=== PATIENT | male | born 1960 | race Caucasian/White ===

== ENCOUNTER → 2023-07-10 09:44 | Outpatient (REF) | payer BC, SELFPAY | LOC: RCS 09:44 | PROVIDERS: ATTENDING PHYSICIAN Orthopaedic Surgery | DX: Z01.818 Encounter for other preprocedural examination (principal) | CPT/HCPCS: 93005 ==

== ENCOUNTER 2023-08-16 06:11 | Inpatient (IN) | payer BC, SELFPAY ==
[2023-08-14 09:36] VITALS: BMI 22.8
[2023-08-14 10:08] LABS: % Basophils 0.9 % (0-2); % Eosinophils 1.8 % (0-6); % Immature Granulocytes 0.1 % (0-0.5); % Lymphocytes 27.9 % (20.5-51.1); % Monocytes 6.1 % (1.7-9.3); % Neutrophils 63.2 % (42.2-75.2); Absolute Basophils 0.1 10^3/uL (0-0.2); Absolute Eosinophils 0.1 10^3/uL (0-0.7); Absolute Lymphocytes 1.9 10^3/uL (1.2-3.4); Absolute Monocytes 0.4 10^3/uL (0.1-0.6); Absolute Neutrophils 4.2 10^3/uL (1.4-6.5); Hematocrit 40.9 % (39.0-52.0); Hemoglobin 14.2 g/dL (13.0-18.0); Mean Corp Hgb Conc. 34.7 g/dL (33.0-37.0); Mean Corpuscular Hgb 29.6 pg (27.0-31.0); Mean Corpuscular Volume 85.4 fL (80.0-94.0); Mean Platelet Volume 10.5 fL (7.4-10.4); Nucleated Red Blood Cells % 0 % (-); Platelet Count 226 10^3/uL (130-400); Red Blood Cell Count 4.79 10^6/uL (4.70-6.10); Red Cell Dist. Width 12.7 % (11.5-14.5); White Blood Cell Count 6.7 10^3/uL (4.8-10.8)
[2023-08-14 10:21] LABS: INR 1.03; PT 13.6 Sec (11.4-14.6)
[2023-08-14 10:29] LABS: Blood Urea Nitrogen 33 mg/dl (9-20); Calcium 10.1 mg/dl (8.4-10.2); Carbon Dioxide 28 mmol/L (22-30); Chloride 101 mmol/L (98-107); Estimated Creatinine Clearance 77 ml/min; Glucose 128 mg/dl (70-99); Potassium 4.2 mmol/L (3.5-5.1); Sodium 139 mmol/L (135-145); eGFR > 60.00
[2023-08-16] VITALS (17 sets, daily range): BP systolic 84–141; BP diastolic 50–81; BMI 22.3; BMI 22.9
[2023-08-16] MEDS: BACTROBAN NASAL 1 GRAM NASAL (06:44)
[2023-08-16] MEDS: PERIDEX 0.12% ORAL RINSE 15 ML PO (06:44)
[2023-08-16 06:52] LABS: Glucose - Point of Care 161 mg/dl (70-99)
--- NOTE | 2023-08-16 06:54 | PTCARENOTE ---
Dr Hancock at pt bedside.
--- NOTE | 2023-08-16 07:00 | W.SUR.PREOP ---
Pre-Operative Surgical Note
-
I have examined this patient prior to the performance of the scheduled procedure.
The patient's condition is unchanged from the time of the current History and
Physical and the patient is able to undergo the scheduled procedure.
--- NOTE | 2023-08-16 09:49 | W.SUR.POST ---
Surgical Immediate Post Op
Note
Pre Op Diagnosis: Carotid stenosis
Post Op Diagnosis: Carotid stenosis
Procedure Performed: Right carotid endarterectomy and bovine pericardium patch angioplasty with EEG monitoring
Primary Surgeon: Samir Hancock MD
physician assistant primary care: JED Gordon
Anesthesia: GETA
Estimated Blood Loss: 10 mL
Fluids: See anesthesia flowsheet
Drains/Shunts: N/A
Specimens/Cultures: Right carotid plaque
Doppler/Duplex/Angio (Y/N): Y
Complications: None
Operative Findings: Upon waking from anesthesia patient was able to move bilateral upper and lower extremities to command and spontaneously, tongue midline with symmetrical face
[2023-08-16] MEDS: NEO-SYNEPHRINE 250 IV (10:22)
[2023-08-16 10:35] LABS: Hematocrit 34.4 % (39.0-52.0); Hemoglobin 12.2 g/dL (13.0-18.0); Mean Corp Hgb Conc. 35.5 g/dL (33.0-37.0); Mean Corpuscular Hgb 30.6 pg (27.0-31.0); Mean Corpuscular Volume 86.2 fL (80.0-94.0); Mean Platelet Volume 10.4 fL (7.4-10.4); Platelet Count 185 10^3/uL (130-400); Red Blood Cell Count 3.99 10^6/uL (4.70-6.10); Red Cell Dist. Width 12.9 % (11.5-14.5); White Blood Cell Count 9.6 10^3/uL (4.8-10.8)
--- NOTE | 2023-08-16 10:48 | OR.RPT ---
Operative Report
Operative Report
PROCEDURE DATE: 08/16/2023
Preoperative diagnosis: Asymptomatic critical right carotid artery stenosis.
Postoperative diagnosis: Same
Procedure: Right carotid endarterectomy with bovine pericardial patch angioplasty and intraoperative EEG/SSEP monitoring.
Surgeon: Santi
Home Stereo Equipment Installer: URIEL Trimble required for all aspects of procedure including assistance with traction/countertraction, following of suture line, assistance with closure.
Complications: None
Anesthesia: General
Indications for procedure:
Critical right carotid artery stenosis, asymptomatic. Risk/benefits/alternatives of revascularization were all fully discussed. Patient understood all wish to proceed.
Description of procedure:
Patient was identified brought to the operating room placed on the table in supine position. After the adequate administration of anesthesia and perioperative antibiotics he was prepped and draped in the standard surgical fashion. A standard
preoperative timeout was undertaken and everybody was in agreement the plan. A standard longitudinal incision was made in the right neck that was carried through the skin subcutaneous tissue. Using the electrocautery dissection was carried through
the platysma muscle layer and then alongside the anterior medial border of the sternocleidomastoid muscle. Then using a combination of sharp dissection with the Metzenbaum scissors and electrocautery I dissected along the anterior medial border of
the internal jugular vein. The common facial vein branch was ligated between silk ties and then divided. An additional small vein branch was ligated between silk ties and divided as well. I then deepened my retraction. The common carotid artery
was identified and carefully dissected away from the surrounding structures take great care to avoid any injury to the structures. A vessel loop was passed around it which was double looped, but not yet tightened. Note the vagus nerve was noted in
its usual course posterior lateral to the common carotid artery, and was clearly protected from harm's way. I then continued my dissection up the common carotid artery to the bulb staying only on the anterior surface of the carotid artery. Then I
carried the dissection up to the internal carotid artery and then to the distal internal carotid artery. I identified where it was soft (beyond the plaque which was about a centimeter beyond the origin as noted on CT scan), and carefully
circumferentially dissected the internal carotid artery with minimal mobilization and passed a vessel loop around it. Note the hypoglossal nerve was not visualized in her field and was felt to be further cephalad. The patient was given an
appropriate dose of heparin 7000 units. Next I dissected the anterior surface of the external carotid artery and superior thyroid branches. These were then carefully circumferentially dissected with minimal mobilization and vessel loops passed
around these which were double looped but not yet tightened. After 3 minutes of heparin circulation time and confirmation of optimization of the blood pressure with my anesthesiology colleagues, I clamped the distal internal carotid artery where it
was soft. There was no immediate EEG or SSEP changes. After 1 minute of test clamp time there was no changes noted. Therefore at this point, the vessel loops on the external carotid artery and superior thyroid branches were tightened and the
common carotid artery was clamped where it was soft proximally. An arteriotomy was made on the common carotid artery with an 11 blade and extended using a Cobian scissor. I extended the arteriotomy onto the mid to distal internal carotid artery.
There was severe soft plaque noted in the proximal internal carotid artery that resulted in significant stenosis. A Gloucester was then used to endarterectomized the plaque. An endarterectomy plane was created, and the plaque was then
endarterectomized. It was a little bit challenging due to the soft nature of the plaque, but was able to adequately endarterectomized. Distally I feathered the plaque out to a nice clean endpoint in the distal internal carotid artery. Initially,
there was still a medial wall lip of plaque, but I was able to use a Gloucester and endarterectomized this cleanly until that feathered out to a good endpoint. Next I endarterectomized the intima back to normal intima in the common carotid artery, and
the intima was cut flush there. I then grasped the plaque and everted plaque out of the origin of the external carotid artery. The plaque was then sent off for specimen. The origin of the external carotid artery was carefully visualized and any
fine debris were removed with fine forceps. Proximal and distal endpoints were then carefully inspected. Any fine debris was removed with fine forceps, and the intima was noted to be nicely adherent proximally and distally. Next any fine debris
were removed throughout the endarterectomy bed with fine forceps. I then flushed heparinized saline. I was very satisfied. Then, I used a bovine pericardial patch to sew a patch angioplasty with a running 6-0 Prolene suture. Prior to completing
and tying down my suture line, I backbled sequentially each branch and reclamped each branch prior to unclamping the next branch. I then irrigated with heparinized saline. Then I completed and tied down my suture line. We then restored flow in
the common carotid and external carotid arteries. Finally, we released flow in the internal carotid artery. There was excellent pulsatile flow in all 3 vessels. There was an excellent Doppler signal in the internal carotid artery distal to the
patch with a good normal low resistance Doppler signal. There was a good Doppler signal in the external carotid artery as well. Protamine was given to reverse the heparin. Hemostasis was completely achieved. We then irrigated and confirmed full
hemostasis. I then closed in layers with 2-0 Vicryl layer to reapproximate the sternocleidomastoid muscle, followed by 3-0 Vicryl platysma muscle running layer, followed by 4 Monocryl subcuticular stitch. Dermabond was applied. The patient
tolerated procedure well. He awoke moving all extremities to command with tongue in the midline.
[2023-08-16 10:50] LABS: Carbon Dioxide 25 mmol/L (22-30); Estimated Creatinine Clearance 108 ml/min; eGFR > 60.00
[2023-08-16] MEDS: NSS 1000 IV (10:53)
[2023-08-16 11:33] LABS: Blood Urea Nitrogen 23 mg/dl (9-20); Calcium 8.2 mg/dl (8.4-10.2); Chloride 105 mmol/L (98-107); Glucose 156 mg/dl (70-99); Sodium 138 mmol/L (135-145)
--- NOTE | 2023-08-16 11:52 | CON.INTV ---
Consultation
Consultation Request
Date/Time Consultation Requested: 08/16/23
Date/Time Consultation Performed: 08/16/23
Performing Provider: Paxton
Reason for Consultation: Critical Care
Medical History
-
History of Present Illness:
Patient is a 63-year-old male with previous history of diabetes, hypercholesterolemia, chronic kidney disease, former smoker, bilateral carotid disease presenting for elective carotid endarterectomy. He has severe right-sided disease notably with
75-80% occlusion. Underwent procedure today 08/16/2023 without complications. Postoperatively transferred to ICU for further management.
Past Medical History
Past Medical History: Other (see list below)
Social History
Tobacco: Former Smoker
Alcohol: None
Drug: None
Family History
Family History: Reviewed & Not Pertinent
Allergies / Home Medications
Allergies
Allergy/AdvReac Type Severity Reaction Status Date / Time
No Known Allergies Allergy Verified 08/16/23 06:36
Home Medications
�Medication �Instructions �Recorded �Confirmed �Last Taken �Type
aspirin 81 mg tablet,delayed 81 mg PO DAILY 08/07/23 08/16/23 07/19/23 08:00 History
release
metformin 500 mg tablet 500 mg PO BID 08/07/23 08/16/23 08/09/23 08:00 History
multivitamin 1 tab PO DAILY 08/07/23 08/16/23 08/02/23 08:00 History
omega 7-vrc-gnj-fish oil 1,000 mg 1 cap PO DAILY 08/07/23 08/16/23 08/02/23 08:00 History
(120 mg-180 mg) capsule (Fish Oil)
rosuvastatin 20 mg tablet 20 mg PO QPM 08/07/23 08/16/23 08/02/23 08:00 History
tirzepatide 2.5 mg/0.5 mL 2.5 mg SC TU 08/07/23 08/16/23 08/06/23 09:00 History
subcutaneous pen injector
(Mounjaro)
Review of Systems
Vitals / Labs / Diagnostic Testing
Vital Signs
Temp Pulse Resp BP Pulse Ox
98.3 F 79 13 141/81 95
08/16/23 11:39 08/16/23 11:37 08/16/23 11:37 08/16/23 11:36 08/16/23 11:37
Lab Data
08/16/23 10:28
08/16/23 10:27
Microbiology
08/14/23 09:45 Nose MRSA Screen - Final
No Methicillin Resistant Staphylococcus aureus isolated.
Diagnostic Testing:
Physical Exam
-
HEENT: Normocephalic, Anicteric and Moist Mucous Membranes
Cardiovascular: S1/S2 and Regular Rhythm
Respiratory: Clear and Non-Labored Respirations
GI: Soft, Non Distended and Non Tender
Neurology: Awake, Alert, Oriented, AO x 3 and No Motor Deficits
Skin: Warm, Dry and Good Color
General: Comfortable and Other (NAD)
Assessment
-
Patient is a 63-year-old male with previous history of diabetes, hypercholesterolemia, chronic kidney disease, former smoker, bilateral carotid disease presenting for elective carotid endarterectomy. He has severe right-sided disease notably with
75-80% occlusion. Underwent procedure today 08/16/2023 without complications. Postoperatively transferred to ICU for further management.
Carotid disease s/p R CEA 08/16/23
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
Type 2 diabetes with hyperglycemia
Carotid artery stenosis R>L
Hypercholesterolemia
CKD 3a
Colon polyp
Pulmonary nodule
Osteopenia
Renal cyst
Abdominal aorta dilatation 2.6cm
L ACL repair 1976
Prostate Biopsy 2023
Heavy cigarette smoker (20-39 cigs/day)
Plan
Patient is s/p CEA by vascular surgery service, POD #0
Continue observation following procedure
Follow neurovascular checks per protocol
ASA, statin on board
Follow BP monitoring and parameters as set by primary team
Cardiac history noted
Monitor on telemetry
Pain control per protocol
RASS goal 0
No prior history of pulmonary disease, former smoker
CXR reviewed indicating no acute disease
No prior PFTs for review
Encouraged IS
Diet advancement per protocol
Aspiration precautions
GI prophylaxis if indicated for stress ulcer prevention in the critically ill
Creat at baseline, follow UO
Critical I/Os
Void trials
Replete electrolytes as needed
No signs/symptoms suspicious for infectious etiology at this time
Will observe off antibiotics for now
Follow temperatures/CBC
Hb and platelets postoperatively stable
DVT prophylaxis recommended if not contraindicated based on procedural history -- heparin SQ and mechanical SCDs
Encouraged OOB/PT/OT/ambulation once cleared by surgical team
We will follow
Diagnostic Data
Chest X-Ray: 08/14/23- No acute cardiopulmonary process.
CT Scan:
Echo:
PFT's:
Reports and relevant images were personally reviewed.
-----
Critical Care time 50 mins -- The patient is admitted for acute critical illness for the treatment of vital organ failure and/or prevention of further life-threatening conditions. Total care includes time spent in review of history, physical exam,
medications, hemodynamic/ventilator parameters, laboratory data, imaging and discussion with house staff, pharmacy, respiratory therapy, final inspector shuttle, and nursing.
[2023-08-16 11:54] LABS: Glucose - Point of Care 171 mg/dl (70-99)
[2023-08-16] MEDS: NSS 500 IV (12:18)
[2023-08-16] MEDS: NOVOLOG FLEXPEN-LOW RESISTANCE 1 UNITS SC (12:34)
[2023-08-16] MEDS: TYLENOL 650 MG PO ×2 (12:37→19:45)
--- NOTE | 2023-08-16 13:28 | PTCARENOTE ---
Received pt from PACU s/p R CEA. SR-SB on monitor. BP supported by neosynephrine, titrated as ordered. A-line correlating with NIBP. Neuro assessment WNL. Right neck incision CDI, closed with dermabond. Ice pact intermittently in use by patient.
Tolerating diet. tylenol given for neck/jaw pain. at bedside.
--- NOTE | 2023-08-16 16:34 | PTCARENOTE ---
Assessment unchanged. Pt tolerated meal. Tylenol effective for jaw pain.
[2023-08-16 17:29] LABS: Glucose - Point of Care 218 mg/dl (70-99)
[2023-08-16] MEDS: NOVOLOG FLEXPEN-LOW RESISTANCE 2 UNITS SC (17:34)
[2023-08-16] MEDS: CRESTOR 20 MG PO (17:34)
[2023-08-16] MEDS: HEPARIN 5000 UNITS SC (19:45)
--- NOTE | 2023-08-16 20:33 | PTCARENOTE ---
Pt Aox3, VSS, NSR/SB on monitor, Pt remains on Phenylephrine gtt at 30mcg/9mls/hr for SBP >100. Pt LARA, Pupils are round, equal, and reactive. C/o neck/jaw pain from surgical site, 3/10 PRN Tylenol given. Maria [place] Carmen correlating with cuff. 1 hour neuro
checks, plan of care on going.
[2023-08-16 22:23] LABS: Glucose - Point of Care 136 mg/dl (70-99)
[2023-08-17] VITALS (11 sets, daily range): BP systolic 94–113; BP diastolic 55–71; BMI 23.1
--- NOTE | 2023-08-17 00:30 | PTCARENOTE ---
Pt Aox3, VSS, assessment unchanged overnight.
[2023-08-17] MEDS: TYLENOL 650 MG PO (02:07)
[2023-08-17 04:47] LABS: Hematocrit 34.6 % (39.0-52.0); Hemoglobin 12.2 g/dL (13.0-18.0); Mean Corp Hgb Conc. 35.3 g/dL (33.0-37.0); Mean Corpuscular Hgb 29.7 pg (27.0-31.0); Mean Corpuscular Volume 84.2 fL (80.0-94.0); Mean Platelet Volume 10.3 fL (7.4-10.4); Platelet Count 205 10^3/uL (130-400); Red Blood Cell Count 4.11 10^6/uL (4.70-6.10); Red Cell Dist. Width 13.1 % (11.5-14.5); White Blood Cell Count 12.1 10^3/uL (4.8-10.8)
[2023-08-17 05:00] LABS: INR 1.11; PT 14.3 Sec (11.4-14.6)
[2023-08-17 05:01] LABS: APTT 36.1 Sec (23.4-35.0)
[2023-08-17 05:12] LABS: Blood Urea Nitrogen 19 mg/dl (9-20); Calcium 8.8 mg/dl (8.4-10.2); Carbon Dioxide 24 mmol/L (22-30); Chloride 105 mmol/L (98-107); Estimated Creatinine Clearance 111 ml/min; Glucose 125 mg/dl (70-99); Potassium 3.7 mmol/L (3.5-5.1); Sodium 137 mmol/L (135-145); eGFR > 60.00
--- NOTE | 2023-08-17 07:16 | W.PN.INTV ---
Today's Communication / Plan
Recommendations
Doing well post op, stable overnight
Encouraged OOB/IS/PT
Discharge planning per team
Assessment
-
Patient is a 63-year-old male with previous history of diabetes, hypercholesterolemia, chronic kidney disease, former smoker, bilateral carotid disease presenting for elective carotid endarterectomy. He has severe right-sided disease notably with
75-80% occlusion. Underwent procedure today 08/16/2023 without complications. Postoperatively transferred to ICU for further management.
Carotid disease s/p R CEA 08/16/23
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
Type 2 diabetes with hyperglycemia
Carotid artery stenosis R>L
Hypercholesterolemia
CKD 3a
Colon polyp
Pulmonary nodule
Osteopenia
Renal cyst
Abdominal aorta dilatation 2.6cm
L ACL repair 1976
Prostate Biopsy 2023
Heavy cigarette smoker (20-39 cigs/day)
Plan
Patient is s/p CEA by vascular surgery service, POD #1
Continue observation following procedure
Follow neurovascular checks per protocol
ASA, statin on board
Follow BP monitoring and parameters as set by primary team
Cardiac history noted
Monitor on telemetry
Pain control per protocol
RASS goal 0
No prior history of pulmonary disease, former smoker
CXR reviewed indicating no acute disease
No prior PFTs for review
Encouraged IS
Diet advancement per protocol
Aspiration precautions
GI prophylaxis if indicated for stress ulcer prevention in the critically ill
Creat at baseline, follow UO
Critical I/Os
Void trials
Replete electrolytes as needed
No signs/symptoms suspicious for infectious etiology at this time
Will observe off antibiotics for now
Follow temperatures/CBC
Hb and platelets postoperatively stable
DVT prophylaxis recommended if not contraindicated based on procedural history -- heparin SQ and mechanical SCDs
Encouraged OOB/PT/OT/ambulation once cleared by surgical team
Discharge planning per team
Diagnostic Data
Chest X-Ray: 08/14/23- No acute cardiopulmonary process.
CT Scan:
Echo:
PFT's:
Reports and relevant images were personally reviewed.
-----
Critical Care time 31 mins -- The patient is admitted for acute critical illness for the treatment of vital organ failure and/or prevention of further life-threatening conditions. Total care includes time spent in review of history, physical exam,
medications, hemodynamic/ventilator parameters, laboratory data, imaging and discussion with house staff, pharmacy, respiratory therapy, alcohol still operator, and nursing.
Subjective Dataa
Subjective Data
Date of Service:
Date of Service: August 17, 2023
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
Subjective:
Doing well, no new events ON
Stable on RA
Objective Data
Data Reviewed
Vital Signs / I&O / Oxygen:
Vital Signs
Temp Pulse Resp BP Pulse Ox
98.2 F 54 19 112/58 97
08/17/23 04:20 08/17/23 06:15 08/17/23 06:15 08/17/23 04:00 08/17/23 06:15
Intake and Output
08/16/23 08/17/23 08/18/23
06:59 06:59 06:59
Intake Total 1498.5 / 1504.5
Output Total 1600 / 1600
Balance -101.5 / -95.5
SaO2 97
Nasal Cannula flow liters per 2
minute
Physical Exam
General: Comfortable, Good Appetite and Other (NAD)
HEENT: Normocephalic, Anicteric and Moist Mucous Membranes
Cardiovascular: S1-S2 and Regular Rhythm
Respiratory: Clear and Non-Labored Respirations
GI: Soft, Non Distended and Non Tender
Neurology: Awake, Alert, Oriented, AO x 3 and No Motor Deficits
Skin: Warm, Dry and Good Color
Labs/Micro/Reports
Lab Data
08/17/23 04:28
08/17/23 04:28
Laboratory Results
08/17/23
04:28
PT 14.3
INR 1.11
APTT 36.1 H
Microbiology
08/14/23 09:45 Nose MRSA Screen - Final
No Methicillin Resistant Staphylococcus aureus isolated.
[2023-08-17] MEDS: THERAGRAN 1 TABLET PO (07:28)
[2023-08-17] MEDS: ASPIR LOW (ENTERIC COATED) 81 MG PO (07:28)
[2023-08-17] MEDS: HEPARIN 5000 UNITS SC (07:28)
[2023-08-17] MEDS: GLUCOPHAGE 500 MG PO (07:28)
[2023-08-17] MEDS: KCL 20 MEQ PO (07:28)
--- NOTE | 2023-08-17 07:32 | W.PN.VS ---
Today's Communication / Plan
-
Patient seen and examined at bedside with Dr. Samir Hancock, below plan reviewed with attending.
Assessment/Plan
-
Assessment: 63-year-old male POD #1 right carotid endarterectomy
Plan:
Discontinue arterial line once Chung-Synephrine infusion weaned off
Discontinue IV fluids
Once arterial line is removed patient can get out of bed to chair with progression to ambulation as tolerated
Continue p.o. diet
Possible discharge later this afternoon pending toleration of ambulation and stability of blood pressure
Subjective Data
-
Date of Service: August 17, 2023
Patient seen and examined at bedside, offers no complaints. Reports adequate postoperative pain management. Denies nausea, vomiting, headache, fever, and chills. Reports eagerness for discharge home.
Objective Data
-
Vital Signs
Temp Pulse Resp BP Pulse Ox
98.2 F 54 19 112/58 97
08/17/23 04:20 08/17/23 06:15 08/17/23 06:15 08/17/23 04:00 08/17/23 06:15
Intake and Output
08/16/23 08/17/23 08/18/23
06:59 06:59 06:59
Intake Total 1498.5 / 1504.5
Output Total 1600 / 1600
Balance -101.5 / -95.5
Intake:
Oral fluids 480 / 480
IV fluids (Total) 1018.5 / 1024.5
NSS 820 / 820
Phenyl. 198.5 / 204.5
Output:
Urine, Voided 1600 / 1600
Lab Results
08/17/23 04:28
08/17/23 04:28
Calcium 8.8 mg/dl (8.4-10.2) 08/17/23 04:28
Physical Exam
-
AAOx3, no apparent distress
Facial symmetry, right neck site CDI, no evidence of hematoma, tongue midline
No tachycardia
No dyspnea on room air
ABD flat
Can move bilateral upper and lower extremities to command and spontaneously with appropriate strength
Bilateral lower extremities without edema
[2023-08-17] MEDS: NOVOLOG FLEXPEN-LOW RESISTANCE SC ×2 (07:37→11:51)
[2023-08-17 07:47] LABS: Glucose - Point of Care 138 mg/dl (70-99)
--- NOTE | 2023-08-17 10:04 | PTCARENOTE ---
Pt received in bed @ 0700. AAOx3. Denying pain. Neurological assessment without observed deviation. SaO2 97% on room air. Deep breathing encouraged. Sinus rhythm/Sinus mis on surveillance monitor. HR observed 50s - 70s. Peripheral pulses palpable.
Phenylephrine titrated off per order. Right radial arterial line removed. SBP remains > 90. MAP > 65. Pt denying dizziness or lightheadedness. Ambulated OOB to chair with assistance. Voiding yellow into urinal. at bedside.
--- NOTE | 2023-08-17 11:36 | PTCARENOTE ---
Pt reassessed. No changes observed. Pt remains OOB in chair. SBP > 90 and MAP > 65. Pt ambulated in room and out in hallway.
[2023-08-17 12:00] LABS: Glucose - Point of Care 121 mg/dl (70-99)
--- NOTE | 2023-08-17 13:06 | W.DS.TRANS ---
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
-
Discharge Instructions:
Sleep Apnea Risk Low
Discharge Diagnosis/Procedures Right Carotid Endarterectomy
Diet No restrictions
Activity No strenuous activity
Driving Restrictions Not until seen by your Dr
Bathing Restrictions OK to Shower
Instructions:
Stand-Alone Forms: DC Instr - Vascular OR
Changes to Home Medications: No
Discharge Medications:
DC Medications w/original date entered in [employer]
aspirin 81 mg tablet,delayed release 81 mg PO DAILY Blood Clot Prevention/Tx 08/07/23
metformin 500 mg tablet 500 mg PO BID Diabetes 08/07/23
multivitamin 1 tab PO DAILY Supplement 08/07/23
omega 0-zxh-apd-fish oil 1,000 mg (120 mg-180 mg) capsule (Fish Oil) 1 cap PO DAILY Supplement 08/07/23
rosuvastatin 20 mg tablet 20 mg PO QPM High Cholesterol 08/07/23
tirzepatide 2.5 mg/0.5 mL subcutaneous pen injector (Mounjaro) 2.5 mg SC TU Diabetes 08/07/23
Home Medication Changes
Pending Results: No
--- NOTE | 2023-08-17 14:00 | SUR.OPER ---
Discharge instructions reviewed with patient with his at bedside. No follow up questions. IV sites removed. Pt escorted out of hospital via wheelchair, taken home by .
== END 2023-08-17 13:37 | disposition home or self-care (01) | DRG 39 ==
LOC: ICU 06:11
PROVIDERS: Nurse Practitioner; ADMITTING PHYSICIAN Surgery Vascular Surgery; CONSULT PHYSICIAN Internal Medicine; FAMILY PHYSICIAN Family Medicine
PROC: 03UK0KZ Supplement Right Internal Carotid Artery with Nonautologous Tissue Substitute, Open Approach (ICD-10-PCS; 2023-08-16)
PROC: 03CK0ZZ Extirpation of Matter from Right Internal Carotid Artery, Open Approach (ICD-10-PCS; 2023-08-16)
DX: I65.21 Occlusion and stenosis of right carotid artery (principal); E11.22 Type 2 diabetes mellitus with diabetic chronic kidney disease; N18.31 Chronic kidney disease, stage 3a; E11.65 Type 2 diabetes mellitus with hyperglycemia; I77.811 Abdominal aortic ectasia; E78.00 Pure hypercholesterolemia, unspecified; Z79.82 Long term (current) use of aspirin; Z79.84 Long term (current) use of oral hypoglycemic drugs; Z79.85 Long-term (current) use of injectable non-insulin antidiabetic drugs; Z79.899 Other long term (current) drug therapy; Z87.891 Personal history of nicotine dependence
CPT/HCPCS: 88304; 88311; 35301; 36415; 71046; 80048; 82962; 85025; 85027; 85610; 85730; 86850; 86900; 86901; 87070; 95938; 95941; 95955

== ENCOUNTER → 2023-08-30 14:24 | Outpatient (REF) | payer BC, SELFPAY | LOC: MRI 3T 14:24 | PROVIDERS: ATTENDING PHYSICIAN Specialist; FAMILY PHYSICIAN Family Medicine | DX: C61 Malignant neoplasm of prostate (principal) | CPT/HCPCS: 72197; A9575 ==

== ENCOUNTER → 2023-10-12 12:55 | Outpatient (REF) | payer BC, SELFPAY | LOC: RAD 12:55 | PROVIDERS: ATTENDING PHYSICIAN Registered Nurse; FAMILY PHYSICIAN Family Medicine | DX: I65.21 Occlusion and stenosis of right carotid artery (principal) | CPT/HCPCS: 93880 ==

== ENCOUNTER → 2023-10-16 06:26 | Day surgery (SDC) | payer BC, SELFPAY | LOC: GI 06:26 | PROVIDERS: ATTENDING PHYSICIAN Internal Medicine Gastroenterology | DX: K57.30 Diverticulosis of large intestine without perforation or abscess without bleeding (principal); K64.8 Other hemorrhoids; R93.3 Abnormal findings on diagnostic imaging of other parts of digestive tract; D12.8 Benign neoplasm of rectum; D12.3 Benign neoplasm of transverse colon; D12.5 Benign neoplasm of sigmoid colon; K63.5 Polyp of colon | CPT/HCPCS: 45385; 88305 ==

== ENCOUNTER 2023-11-08 06:03 | Day surgery (SDC) | payer BC, SELFPAY ==
[2023-11-08] VITALS (16 sets, daily range): BP systolic 116–148; BP diastolic 70–104; BMI 22.7
[2023-11-08 06:34] LABS: Glucose - Point of Care 135 mg/dl (70-99)
[2023-11-08] MEDS: NORMOSOL-R/PLASMALYTE-A 1000 IV ×2 (06:35→14:17)
[2023-11-08] MEDS: NEOMYCIN ENEMA 1 BOTTLE RECTAL (06:42)
[2023-11-08] MEDS: TYLENOL 1000 MG PO (07:12)
[2023-11-08 09:36] LABS: Glucose - Point of Care 157 mg/dl (70-99)
[2023-11-08 11:14] LABS: Glucose - Point of Care 165 mg/dl (70-99)
[2023-11-08] MEDS: ASPIR LOW (ENTERIC COATED) 81 MG PO (12:23)
[2023-11-08] MEDS: GLUCOPHAGE PO (14:05)
[2023-11-08] MEDS: POLYSPORIN/DOUBLE ANTIBIOTIC TOPICAL (14:05)
[2023-11-08] MEDS: COLACE PO ×2 (14:05)
--- NOTE | 2023-11-08 14:05 | PTCARENOTE ---
Telephone report received from MANAGER OF MARKETING Celia, patient arrived in bed @14:05, edwards catheter intact with clear yellow urine, 5 abdominal incisions covered with xerofoam, telfa & tegaderm (2nd and 4th small bloody drainage) VSS; admission history
obtained from patient.
[2023-11-08] MEDS: TORADOL 15 MG IV ×2 (16:25→22:29)
[2023-11-08] MEDS: COLACE 100 MG PO (16:27)
[2023-11-08 17:03] LABS: Glucose - Point of Care 169 mg/dl (70-99)
[2023-11-08] MEDS: GLUCOPHAGE 500 MG PO (17:17)
[2023-11-08] MEDS: CRESTOR 20 MG PO (17:17)
[2023-11-08] MEDS: POLYSPORIN/DOUBLE ANTIBIOTIC 1 APPLIC TOPICAL (19:46)
[2023-11-09] MEDS: NORMOSOL-R/PLASMALYTE-A 1000 IV (03:04)
[2023-11-09 03:21] VITALS: BP 117/71
[2023-11-09] MEDS: TORADOL 15 MG IV ×2 (03:28→09:00)
[2023-11-09 06:44] LABS: Hematocrit 32.1 % (39.0-52.0); Hemoglobin 11.1 g/dL (13.0-18.0); Mean Corp Hgb Conc. 34.6 g/dL (33.0-37.0); Mean Corpuscular Hgb 30.3 pg (27.0-31.0); Mean Corpuscular Volume 87.7 fL (80.0-94.0); Mean Platelet Volume 10.9 fL (7.4-10.4); Platelet Count 191 10^3/uL (130-400); Red Blood Cell Count 3.66 10^6/uL (4.70-6.10); Red Cell Dist. Width 13.1 % (11.5-14.5); White Blood Cell Count 10.2 10^3/uL (4.8-10.8)
--- NOTE | 2023-11-09 06:48 | W.PN.URO.CBU ---
Today's Communication / Plan
-
discharge
Assessment / Plan
-
stable
Diagnosis
-
Date of Service: November 09, 2023
-
Patient Diagnosis: prostate cancer s/p RALRP
Post Op Day: 1
Subjective
-
'great'
Objective
-
Vital Signs
Temp Pulse Resp BP Pulse Ox
98.1 F 78 18 117/71 98
11/09/23 03:21 11/09/23 03:21 11/09/23 03:21 11/09/23 03:21 11/09/23 03:21
Intake and Output
11/07/23 11/08/23 11/09/23
06:59 06:59 06:59
Intake Total 1260 / 1260
Output Total 825 / 825
Balance 435 / 435
Intake:
Oral fluids 660 / 660
IV fluids (Total) 600 / 600
Normosol 600 / 600
Output:
Urine, Jacobs 425 / 425
Urine, Voided 400 / 400
Laboratory Results
11/09/23 04:29
Physical Exam
-
General - well developed, well nourished, no acute distress
Chest - clear bilaterally
Abdomen - soft, non-tender, positive bowel sounds, no distention
Genitalia - Jacobs with yellow urine
Skin - warm & dry with no rash
Neuro - AOx3, no motor deficits
Extremities - no clubbing, no cyanosis, no edema
Dressings - clean, dry, intact
[2023-11-09 07:00] VITALS: BP 121/77
[2023-11-09 07:12] LABS: Blood Urea Nitrogen 30 mg/dl (9-20); Calcium 8.2 mg/dl (8.4-10.2); Carbon Dioxide 30 mmol/L (22-30); Chloride 98 mmol/L (98-107); Estimated Creatinine Clearance 64 ml/min; Glucose 106 mg/dl (70-99); Potassium 4.6 mmol/L (3.5-5.1); Sodium 139 mmol/L (135-145); eGFR > 60.00
[2023-11-09] MEDS: ASPIR LOW (ENTERIC COATED) 81 MG PO (08:59)
[2023-11-09] MEDS: GLUCOPHAGE 500 MG PO (08:59)
[2023-11-09] MEDS: COLACE 100 MG PO (08:59)
[2023-11-09] MEDS: POLYSPORIN/DOUBLE ANTIBIOTIC 1 APPLIC TOPICAL (09:00)
--- NOTE | 2023-11-09 10:58 | VNURNOTE ---
Home Health Liaison met with patient and at bedside to discuss [facility] nurse/therapy, visits, schedule and homebound status. Patient is agreeable and understands that visits at home will be 2-3 x per week to assess and edwards, incisions, and to
teach medical management. [facility] brochure provided with contact information. Patient is aware that [facility] will contact them for start of care in 1-2 days after discharge from .
[facility] referral completed in [facility].
--- NOTE | 2023-11-09 11:37 | CM ---
patient and at bedside.patient lives with his in house with no patricia,his bed and bath is on the first floor,he amb I and is I with his adl.he has never had a vn or been to ip rehab in past.
PCP: Dr Tenorio Pharmacy:[facility]
PMH:prostate cancer,cea r>l,pulmonary nodule,hx of tobacco use,renal cyst
patient is adm for robo lap radical prostatectomy,tolerating diet,ambulating,has a edwards catheter.Plan: discharge home today with VN.
== END 2023-11-09 10:23 | disposition home or self-care (01) ==
LOC: SDS 06:03
PROVIDERS: ATTENDING PHYSICIAN Specialist
DX: C61 Malignant neoplasm of prostate (principal); Z87.891 Personal history of nicotine dependence
CPT/HCPCS: 55866; 38571; 88305; 88307; 88309; 88332; 80048; 82962; 85027; 88331; 88344

== ENCOUNTER → 2024-04-08 08:29 | Outpatient (REF) | payer BC, SELFPAY | LOC: RAD 08:29 | PROVIDERS: ATTENDING PHYSICIAN Surgery Vascular Surgery; FAMILY PHYSICIAN Family Medicine | DX: I65.21 Occlusion and stenosis of right carotid artery (principal) | CPT/HCPCS: 93880 ==

== ENCOUNTER → 2024-05-10 09:00 | Outpatient (REF) | payer BC, SELFPAY | LOC: HWRAD 09:00 | PROVIDERS: ATTENDING PHYSICIAN Family Medicine | DX: R91.1 Solitary pulmonary nodule (principal); Z87.891 Personal history of nicotine dependence | CPT/HCPCS: 71250 ==

== ENCOUNTER 2024-07-11 05:46 | Day surgery (SDC) | payer BC, SELFPAY ==
[2024-06-26 07:25] VITALS: BMI 24.1
[2024-06-26 08:55] LABS: Hematocrit 42.7 % (39.0-52.0); Hemoglobin 15.2 g/dL (13.0-18.0); Mean Corp Hgb Conc. 35.6 g/dL (33.0-37.0); Mean Corpuscular Hgb 30.4 pg (27.0-31.0); Mean Corpuscular Volume 85.4 fL (80.0-94.0); Platelet Count 218 10^3/uL (130-400); Red Cell Dist. Width 12.2 % (11.5-14.5); White Blood Cell Count 7.3 10^3/uL (4.8-10.8)
[2024-06-26 09:45] LABS: Blood Urea Nitrogen 27 mg/dl (9-20); Calcium 9.4 mg/dl (8.4-10.2); Carbon Dioxide 24 mmol/L (22-30); Chloride 105 mmol/L (98-107); Estimated Creatinine Clearance 79 ml/min; Glucose 136 mg/dl (70-99); Potassium 4.5 mmol/L (3.5-5.1); Sodium 138 mmol/L (135-145); eGFR > 60.00
[2024-07-11] VITALS (10 sets, daily range): BP systolic 94–152; BP diastolic 44–93; BMI 24.1
[2024-07-11] MEDS: TYLENOL 1000 MG PO (06:04)
[2024-07-11 06:19] LABS: Glucose - Point of Care 134 mg/dl (70-99)
[2024-07-11] MEDS: NORMOSOL-R/PLASMALYTE-A 1000 IV (06:20)
--- NOTE | 2024-07-11 08:22 | W.IMMPOSTOP ---
Surgical Immed Post Op Note
-
Primary Surgeon: Cj Dubon MD
Assisting Surgeon: None
Pre-op Diagnosis: Right inguinal hernia
Post-op Diagnosis: Same
Procedure Performed:
1. Open right inguinal hernia repair with mesh
2. Pragmatic right inguinal neurectomy
Anesthesia Type: General
Specimen / Cultures: Right inguinal nerves
Estimated Blood Loss: 1 cc
Complications: None
Operative Findings: Moderate-sized indirect inguinal hernia. Minuscule cord lipoma removed. the iliohypogastric nerve was identified and sacrificed. The ilioinguinal nerve and genital nerves were identified and preserved. After performing a
high ligation of the sac, the floor was reinforced with a 10 x 15 cm Bard soft uncoated polypropylene mesh cut to size in a standard Dorene approach.
--- NOTE | 2024-07-11 08:27 | OR.RPT ---
Operative Report
Operative Report
Patient Name: Nelson Barnes
: 1960
Date of Operation: 07/11/2024
Preoperative Diagnosis: Reducible Inguinal hernia, right
Postoperative Diagnosis: Same
Procedure(s):
1. Open right inguinal Hernia Repair with mesh (Dorene approach)
2. Pragmatic right inguinal neurectomy
Surgeon(s):
Dr. Dubon
Filter Screen Cleaner(s):
JEANNINE Mccarthy
Anesthesia: General
Estimated Blood Loss: 1 cc
Urine Output: None
Drains/Lines/Implants: 10 x 15 cm Bard soft uncoated polypropylene mesh cut to size
Specimens: None
Indication for surgery: The patient has a history of groin pain and some asymmetry noted on exam and was found to have a right inguinal Hernia. Following review of therapeutic options they has elected to undergo an open repair
Operative Findings: Moderate-sized indirect inguinal hernia. Minuscule cord lipoma removed. the iliohypogastric nerve was identified and sacrificed. The ilioinguinal nerve and genital nerves were identified and preserved. After performing a
high ligation of the sac, the floor was reinforced with a 10 x 15 cm Bard soft uncoated polypropylene mesh cut to size in a standard Dorene approach.
Details of the operation:
After induction of general anesthesia, the patient was clipped, prepped and draped in the supine position. A team timeout was performed confirming administration of DVT prophylaxis, IV antibiotics and SCDs. The ASIS and pubic tubercle were marked
and an incision was chosen along the course of a skin line. The skin was anesthetized with Lidocaine. An incision was made through the skin line and dissection carried down through subcutaneous tissue and Freeman's fascia. The superficial epigastric
vein was identified and ligated. A Small Yinka wound retractor was used to provide exposure. The external oblique fibers were then divided in the direction of travel. The ilioinguinal, iliohypogastric and genital nerves were all identified, only
the iliohypogastric was sacrificed given its course over our planned mesh placement. Dissection was carried down to the floor, which revealed the following:
At the site of the indirect (internal) ring, there was a moderate size protrusion of preperitoneal fat, the hernia sac was identified, dissected and reduced off the cord structures. A high ligation was performed with a 2-0 Vicryl suture
A minuscule cord lipoma was also identified and resected.
The direct space, floor of the canal revealed no weakness.
The floor of the canal was then reconstructed by placing a 10 x 15 cm BARD soft uncoated polypropylene mesh trimmed to size and secured it in place with interrupted 0-PDS sutures medially at the pubic tubercle, inferiorly along the inguinal
ligament, laterally/superiorly in the conjoint tendon. A slit was made in the mesh just wide enough to accommodate the cord this was also reapproximated with the PDS suture. Care was taken not to injure or entrap any nerves. The external oblique
fibers were then closed using a running 2-0 Vicryl suture. Freeman's fascia was then closed with interrupted 3-0 Vicryl suture. The skin was closed in layers with interrupted 3-0 vicryl deep dermals followed by a running subcuticular 4-0 Monocryl
followed by dermabond. The patient returned to the Recovery Room in stable condition. Sponge and instrument counts were correct.
I was the attending physician and performed the procedure with assistance of the PA above. The assistance of JEANNINE Mccarthy was required due to the complexity of the procedure. During the procedure Tori assisted with retraction, resection, and
closure of the wound.. I was present for all portions of the case, excluding skin closure.
Cj Dubon MD
[2024-07-11 08:29] LABS: Glucose - Point of Care 164 mg/dl (70-99)
--- NOTE | 2024-07-11 09:18 | SUR.PHASEI ---
comfortable in pacu, vss, no pain or nausea, taking few ice chips po, discharge to [facility]
== END 2024-07-11 09:45 | disposition home or self-care (01) ==
LOC: SDS 05:46
PROVIDERS: ATTENDING PHYSICIAN Surgery; FAMILY PHYSICIAN Family Medicine
DX: K40.90 Unilateral inguinal hernia, without obstruction or gangrene, not specified as recurrent (principal)
CPT/HCPCS: 49505; 64774; 88304; 36415; 80048; 82962; 85027; 93005

== ENCOUNTER → 2024-11-15 06:48 | Outpatient (REF) | payer BC, SELFPAY | LOC: RAD 06:48 | PROVIDERS: ATTENDING PHYSICIAN Physician Assistant; FAMILY PHYSICIAN Family Medicine | DX: I65.21 Occlusion and stenosis of right carotid artery (principal) | CPT/HCPCS: 93880 ==